=== PATIENT | female | born 1990 | race Caucasian/White ===

== ENCOUNTER 2016-11-25 17:39 | Emergency (ER) | payer MEDICAID ==
--- NOTE | 2016-12-07 08:25 | ER ---
ADMIT: 11/25/2016 RM/LOC: ER [facility] MR#: [id number] [id number] EVELYN NELSON [address] [place] [address] Emergency Room Report SEX: F AGE: 26 : 1990 DATE: 11/25/2016 ADDENDUM: This is a 26-year-old female coming in with chest pain. Seen at Urgent Care, they sent her over here. Her EKG is completely normal. They did a chest x-ray over there. I reviewed it and that was normal as well. She also has a history of panic attacks. DIAGNOSES: 1. Panic attack with history of anxiety. 2. Atypical chest pain, noncardiac. We did give her some people to follow up with. CONDITION ON DISCHARGE: Good. Jerry Paul MD/ harry JOB #: [id number] CC: Jerry Paul MD, Attending Physician Butch Moran MD, Family Physician
== END 2016-11-25 18:40 | disposition home or self-care (01) ==
LOC: ER 17:39
DX: R07.89 Other chest pain (principal); F41.0 Panic disorder [episodic paroxysmal anxiety]